=== PATIENT | female | born 1990 | race Caucasian/White ===

== ENCOUNTER 2017-05-25 21:24 | Emergency (ER) | payer OTHER ==
[~2017-05-25] VITALS: Ht 160 cm; Wt 44.0 kg
[2017-05-25 23:42] LABS: BASO % 0.2 % (0.0-1.0); EOS # 0.1 10^3/uL (0.0-0.50); EOS % 0.7 % (0.0-3.0); IMMATURE GRANULOCYTE % 0.3 % (0-0); LYMPH # 1.6 10^3/uL (1.5-6.5); LYMPH % 16.6 % (24.0-44.0); MEAN CORPUSCULAR HEMOGLOBIN 28.4 pg (27.0-33.0); MEAN CORPUSCULAR HGB CONC 34.1 g/dl (32.0-36.5); MEAN CORPUSCULAR VOLUME 83.3 fl (80.0-96.0); MONO # 0.5 10^3/uL (0.0-0.8); MONO % 5.6 % (0.0-5.0); NEUTROPHILS # 7.2 10^3/uL (1.8-7.7); NEUTROPHILS % 76.6 % (36.0-66.0); PLATELET COUNT, AUTOMATED 273 10^3/uL (150-450); RED CELL DISTRIBUTION WIDTH 13.1 % (11.5-14.5); WHITE BLOOD COUNT 9.4 10^3/uL (4.0-10.0)
[2017-05-25 23:45] VITALS: BP 113/73
--- NOTE | 2017-05-26 00:50 | REPUSA ---
CLINICAL HISTORY: Bleeding. TECHNIQUE: Endovaginal ultrasound of the pelvis was performed. FINDINGS: Uterus is normal in size measuring 8.9x5.2x6.3 cm. Anteverted uterus. Heterogeneously thickened endometrium measuring 19.4 mm in its maximum thickness. No intrauterine is seen. Right ovary measures a 3.2x1x1.4 cm. The left ovary measures 3.6x2.3x2.1 cm. There is a left ovarian cyst measuring 2.4 cm. Moderate amount of free fluid is noted in the pelvic cul-de-sac. IMPRESSION: Heterogeneously thickened endometrium. Moderate amount of free fluid in the pelvis. Left ovarian cyst.
== END 2017-05-26 01:37 | disposition home or self-care (01) ==
LOC: M ED 21:24
DX: O20.0 Threatened abortion (principal); O34.80 Maternal care for other abnormalities of pelvic organs, unspecified trimester; Z3A.00 Weeks of gestation of pregnancy not specified

== ENCOUNTER → 2017-05-25 | Outpatient (CLI) | payer OTHER | LOC: M SMT 10:34 | PROVIDERS: ATTEND Advanced Practice Midwife | DX: O26.851 Spotting complicating pregnancy, first trimester (principal) ==

== ENCOUNTER → 2017-05-28 | Outpatient (CLI) | payer OTHER | LOC: M LAB 16:11 | PROVIDERS: ATTEND Advanced Practice Midwife | DX: O26.851 Spotting complicating pregnancy, first trimester (principal); Z36.89 Encounter for other specified antenatal screening; Z3A.00 Weeks of gestation of pregnancy not specified ==

== ENCOUNTER → 2017-05-31 | Outpatient (CLI) | payer OTHER | LOC: M SMT 09:16 | PROVIDERS: ATTEND Advanced Practice Midwife | DX: O02.1 Missed abortion (principal) ==

== ENCOUNTER → 2017-08-30 | Outpatient (CLI) | payer OTHER ==
[2017-08-30 19:20] LABS: PROGESTERONE 17.1 NG/ML
[2017-08-30 19:48] LABS: HCG, SERUM QUANTITATIVE 5876 MIU/ML
== END ==
LOC: M WUC 11:59
DX: N92.6 Irregular menstruation, unspecified (principal)
CPT/HCPCS: 84702

== ENCOUNTER → 2018-02-20 | Outpatient (CLI) | payer OTHER | LOC: M LRY 11:21 | DX: Z34.83 Encounter for supervision of other normal pregnancy, third trimester (principal) ==